=== PATIENT | male | born 1965 | race Caucasian/White ===

== ENCOUNTER 2018-04-17 07:32 | Emergency (ER) | payer MEDICAID ==
[~2018-04-17] VITALS: Ht 188 cm; Wt 110.2 kg
[2018-04-17 08:18] VITALS: BP 119/81
== END 2018-04-17 09:27 | disposition home or self-care (01) ==
LOC: ED 08:06
DX: J20.8 Acute bronchitis due to other specified organisms (principal); Z76.0 Encounter for issue of repeat prescription
CPT/HCPCS: 71046; 99284

== ENCOUNTER 2018-04-20 09:35 | Emergency (ER) | payer MEDICAID ==
[~2018-04-20] VITALS: Ht 188 cm; Wt 112.6 kg
[2018-04-20 09:38] VITALS: BP 157/88
[2018-04-20] MEDS ORDERED: TAMS-11 PO (10:00)
[2018-04-20] MEDS ORDERED: GABA300C10 PO (10:01)
[2018-04-20] MEDS ORDERED: RISP0.253 PO (10:02)
[2018-04-20] MEDS ORDERED: QUET25TA5 PO (10:04)
== END 2018-04-20 10:47 | disposition home or self-care (01) ==
LOC: ED 10:43
DX: M54.16 Radiculopathy, lumbar region (principal); G89.29 Other chronic pain; F17.200 Nicotine dependence, unspecified, uncomplicated
CPT/HCPCS: 99281

== ENCOUNTER 2018-04-27 15:50 | Emergency (ER) | payer MEDICAID ==
[~2018-04-27] VITALS: Ht 188 cm; Wt 111.3 kg
[~2018-04-27 15:50] MED LIST: GABA300C10 PO; QUET25TA5 PO; RISP0.253 PO; TAMS-11 PO
[2018-04-27 15:53] VITALS: BP 117/78
[2018-04-27] MEDS ORDERED: DEXAMETHASONE 4 MG TABLET ONE (16:25)
[2018-04-27] MEDS ORDERED: ALBUTEROL/IPRATROPIUM 2.5MG/0.5MG, 3 ML NPPB SCH (16:30)
[2018-04-27] MEDS ORDERED: DEXAMETHASONE 4 MG TABLET PO ONE (16:30)
[2018-04-27] MEDS ORDERED: ALBUTEROL/IPRATROPIUM 2.5MG/0.5MG, 3 ML ONE (16:34)
== END 2018-04-27 16:58 | disposition home or self-care (01) ==
LOC: ED 16:52
DX: J20.8 Acute bronchitis due to other specified organisms (principal); B96.89 Other specified bacterial agents as the cause of diseases classified elsewhere; J45.909 Unspecified asthma, uncomplicated
CPT/HCPCS: 71046; 94640; 99284

== ENCOUNTER 2018-06-26 09:30 | Emergency (ER) | payer MEDICAID ==
[~2018-06-26] VITALS: Ht 188 cm; Wt 112.0 kg
[2018-06-26 09:36] VITALS: BP 130/68
[2018-06-26] MEDS ORDERED: ALBUTEROL/IPRATROPIUM 2.5MG/0.5MG, 3 ML NPPB SCH (10:00)
[2018-06-26] MEDS ORDERED: ALBUTEROL/IPRATROPIUM 2.5MG/0.5MG, 3 ML ONE (10:16)
[2018-06-26 10:36] LABS: BASOPHILS # (AUTO) 0.07 x10^3/uL (0-0.1); BASOPHILS % (AUTO) 1 % (0-1); EOSINOPHILS # (AUTO) 0.44 x10^3/uL (0-0.4); EOSINOPHILS % (AUTO) 4 % (1-7); LYMPHOCYTES # (AUTO) 3.08 x10^3/uL (1-3.4); LYMPHOCYTES % (AUTO) 31 % (22-44); MD NO; MEAN CORPUSCULAR HEMOGLOBIN 30.4 pg (27.5-34.5); MEAN CORPUSCULAR HGB CONC 34.3 g/dL (33.2-36.2); MEAN CORPUSCULAR VOLUME 88.5 fL (81-97); MEAN PLATELET VOLUME 7.9 fL (7.4-10.4); MONOCYTES # (AUTO) 0.78 x10^3/uL (0.2-0.8); MONOCYTES % (AUTO) 8 % (2-9); NEUTROPHILS # (AUTO) 5.74 x10^3/uL (1.8-6.8); NEUTROPHILS % (AUTO) 57 % (42-75); PLATELET COUNT 417 x10^3/uL (130-400); RED BLOOD COUNT 5.01 x10^6/uL (4.38-5.82); RED CELL DISTRIBUTION WIDTH 13.8 % (9.4-14.8)
[2018-06-26 10:50] LABS: ALBUMIN 3.6 g/dL (3.4-5.0); ANION GAP 7 mmol/L (5-15); CALCIUM 8.7 mg/dL (8.5-10.1); CHLORIDE 108 mmol/L (98-107); CREATININE 0.94 mg/dL (0.7-1.3)
[2018-06-26 11:30] LABS: TROPONIN I < 0.015 ng/mL (0.000-0.045)
== END 2018-06-26 12:10 | disposition home or self-care (01) ==
LOC: ED 11:43
DX: J00 Acute nasopharyngitis [common cold] (principal); J45.909 Unspecified asthma, uncomplicated; F17.210 Nicotine dependence, cigarettes, uncomplicated
CPT/HCPCS: 36415; 71046; 80048; 82040; 84484; 85025; 93005; 94640; 99285; J7620

== ENCOUNTER 2018-09-30 15:16 | Emergency (ER) | payer MEDICAID ==
[~2018-09-30] VITALS: Ht 190.5 cm; Wt 109.0 kg
[2018-09-30 15:38] VITALS: BP 113/77
--- NOTE | 2018-09-30 16:13 | NUR ---
MD Clements at bedside for assessment, impetigo behind R ear, scab to left face, patient will be discharged with abx ointment, referral to clinic, and instructions to establish with PCP and request dermatology referral from them.
--- NOTE | 2018-09-30 16:33 | NUR ---
patient ambulated to discharge desk safely unassisted following discharge education.
== END 2018-09-30 16:34 | disposition home or self-care (01) ==
LOC: ED 16:00
DX: L01.01 Non-bullous impetigo (principal); R23.4 Changes in skin texture; F17.200 Nicotine dependence, unspecified, uncomplicated; F12.10 Cannabis abuse, uncomplicated; Z88.0 Allergy status to penicillin
CPT/HCPCS: 99283

== ENCOUNTER 2018-12-11 10:05 | Emergency (ER) | payer MEDICAID ==
[~2018-12-11] VITALS: Ht 190.5 cm; Wt 112.0 kg
--- NOTE | 2018-12-11 10:28 | NUR ---
AY[place] from [place] bus [place] c/o +EtOH, vomiting, stating "I want to kill myself, I'm a piece of shit.", DC'd from [facility] 12/10/18; hx SI, MS, "Kelly 1 with Cluster B traits"; pt changed into gown, responds approp to staff, tearful at times but mostly calm & cooperative, NAD, comfort measures provided, sitter in view, all personal belongings in bags x2 placed in locker.
--- NOTE | 2018-12-11 11:00 | NUR ---
pt calmly laying on gurney with eyes closed, able to doze off, NAD with equal chest rise/fall, no needs at this time, pt remains in safe environment, sitter in view.
--- NOTE | 2018-12-11 12:01 | NUR ---
pt continues to calmly laying on gurney mostly sleeping, NAD with equal chest rise/fall, no needs at this time, pt remains in safe environment, sitter in view.
[2018-12-11 12:26] VITALS: BP 117/71
--- NOTE | 2018-12-11 12:51 | NUR ---
pt sitting up on gurney awake, calm & comfortable, pt sitting up laughing & joking with staff, states "I'm sorry for wasting everyone's time, I think Randal partied too hard", denies SI/HI, pt given meal tray- ERP aware.
== END 2018-12-11 13:25 | disposition home or self-care (01) ==
LOC: ED 12:17
DX: F10.220 Alcohol dependence with intoxication, uncomplicated (principal)
CPT/HCPCS: 99283

== ENCOUNTER 2020-03-11 10:30 | Emergency (ER) | payer MEDICAID ==
[~2020-03-11] VITALS: Ht 190.5 cm; Wt 106.9 kg
[2020-03-11] MEDS ORDERED: MUPIROCIN OINT 2%, 1 GM APPL. TP SCH ×2 (11:00→11:17)
[2020-03-11 11:02] VITALS: BP 123/92
--- NOTE | 2020-03-11 11:15 | NUR ---
pt presents to ED seeking care for spider bite to rt wrist, pt a&o, resps even and unlabored, nadn. muporicin not in ED omnicell, requested from pharmacy.
[2020-03-11] MEDS ORDERED: MUPIROCIN OINT 2%, 22GM TP SCH (11:18)
--- NOTE | 2020-03-11 11:47 | NUR ---
WOUND CARE COMPLETED, PT GIVEN DC AND SCRIPT, EDUCATED REGARDING DC RX FOR BACRTRIM. GIVEN WOUND CARE EDUCATION. PT A&O, RESPS EVEN AND UNLABORED, AMBULATORY TO DC DESK WITH STEADY GAIT.
== END 2020-03-11 11:48 | disposition home or self-care (01) ==
LOC: ED 11:25
DX: L03.113 Cellulitis of right upper limb (principal)
CPT/HCPCS: 99283

== ENCOUNTER 2020-03-13 09:01 | Emergency (ER) | payer MEDICAID ==
[~2020-03-13] VITALS: Ht 190.5 cm; Wt 109.5 kg
[2020-03-13 09:05] VITALS: BP 142/94
--- NOTE | 2020-03-13 09:17 | NUR ---
pt presents to ED with c/o persistent pain and swelling of right wrist, seeking assistance to obtain prescription for antibiotics that were prescribed 2 days ago for same. pt states [facility] pharmacy would not accept his insurance, seeking med to be filled in ED. Pt seen and examined by JULIAN Gaytan, pt educated that this hospital does not fill prescriptions, pt to receive medication assistance referrals and one time dose abx in ED. pt a&o, resps even and unlabored, nadn. awaiting orders from provider at this time.
[2020-03-13] MEDS ORDERED: SULFAMETH./TRIMETHOPRIM DS 800MG/160MG TABLET ONE (09:21)
--- NOTE | 2020-03-13 09:35 | NUR ---
LATE ENTRY FOR 09: PT GIVEN DC INSTRUCTIONS AND SCRIPT, PRESCRIPTION MEDICATION ASSISTANCE RESOURCES PROVIDED. PT GIVEN WOUND CARE SUPPLIES AND EDUCATION. PT AMBULATORY TO DC DESK WITH STEADY GAIT, NADN AT [place].
[2020-03-13] MEDS ORDERED: SULFAMETH./TRIMETHOPRIM DS 800MG/160MG TABLET PO ONE (10:00)
== END 2020-03-13 09:37 | disposition home or self-care (01) ==
LOC: ED 09:25
DX: L02.511 Cutaneous abscess of right hand (principal); F17.200 Nicotine dependence, unspecified, uncomplicated
CPT/HCPCS: 99283

== ENCOUNTER 2020-08-30 20:44 | Emergency (ER) | payer MEDICAID ==
[~2020-08-30] VITALS: Ht 185.4 cm; Wt 110.0 kg
[2020-08-30] MEDS ORDERED: MORPHINE SULFATE 4 MG/ML, 1ML ONE (21:12)
[2020-08-30] MEDS ORDERED: ONDANSETRON 2MG/ML, 2ML ONE (21:12)
--- NOTE | 2020-08-30 21:16 | NUR ---
MEDICATED PER ORDER, ON CONT PULSE OX, B./P./ RAILS UP. HAS WORSE PAIN TO RIGHT ANKLE UP TO GUZMAN, SWELLING TO RIGHT ANKLE. PREVIOUS HX ANKLE FX WITH HARDWARE. WAITING FOR IMAGING.
--- NOTE | 2020-08-30 21:25 | NUR ---
TO XRAY VIA GURNEY, REPORTS FELLING LESS PAIN IN RIGHT ANKLE SINCE MORPHINE.
[2020-08-30] MEDS ORDERED: ONDANSETRON 2MG/ML, 2ML IVPush ONE (21:30)
[2020-08-30] MEDS ORDERED: MORPHINE SULFATE 4 MG/ML, 1ML IVPush ONE (21:30)
--- NOTE | 2020-08-30 21:56 | NUR ---
BACK FROM XRAY, APPEARS MUCH MORE COMFORTABLE, NO LONGER SCREAMING AND THRASHING ABOUT. FALLS ASLEEP AND DESATS TO 85% REPORTS HX OF YULIANA. PLACED ON 2L NC. SATS UP WITH STIMULATION AND O2. WAITING FOR XRAY RESULTS/RE-EVAL. WILL CONTINUE TO MONITOR.
--- NOTE | 2020-08-30 22:40 | NUR ---
PT TO HAVE AIRSPLINT PLACED BY EMT-DC HOME.
--- NOTE | 2020-08-30 23:00 | NUR ---
RIGHT ANKLE GREGG WRAP WITH AIRSPLINT, PT REFUSES AIR SPLINT SAYS JUST WANTS IT GREGG WRAPPED. DC INSTRUCT AND CAB VOUCHER GIVEN. VSS.
--- NOTE | 2020-08-30 23:20 | NUR ---
PT WALKS STEADY GAIT, CAB VOUCHER. VSS. IV DC CATH INTACT.
[2020-08-30 23:21] VITALS: BP 135/79
== END 2020-08-30 23:55 | disposition home or self-care (01) ==
LOC: ED 21:14
DX: S40.011A Contusion of right shoulder, initial encounter (principal); S90.02XA Contusion of left ankle, initial encounter; S90.01XA Contusion of right ankle, initial encounter; F10.10 Alcohol abuse, uncomplicated; F12.10 Cannabis abuse, uncomplicated; F15.10 Other stimulant abuse, uncomplicated; J45.909 Unspecified asthma, uncomplicated; G89.29 Other chronic pain; Z72.9 Problem related to lifestyle, unspecified; V03.99XA Pedestrian with other conveyance injured in collision with car, pick-up truck or van, unspecified whether traffic or nontraffic accident, initial encounter; Y93.89 Activity, other specified; Y92.488 Other paved roadways as the place of occurrence of the external cause; Y99.8 Other external cause status; Y90.0 Blood alcohol level of less than 20 mg/100 ml
CPT/HCPCS: 72072; 72110; 73030; 73564; 73610; 96374; 96375; 99284; J2270; J2405